=== PATIENT | female | born 1955 | race Caucasian/White ===

== ENCOUNTER 2019-11-01 10:01 | Inpatient (IN) | payer OTHER, SELFPAY ==
[~2019-11-01] VITALS: Ht 172.7 cm; Wt 100.7 kg
[2019-11-01 10:11] VITALS: Ht 172.7 cm; Wt 100.7 kg
[2019-11-01 11:41] LABS: UA SPECIFIC GRAVITY 1.015 (1.005-1.035); microscopic required? YES; urine erythrocyte NEGATIVE (NEGATIVE)
[2019-11-01 11:44] LABS: RED CELL DISTRIBUTION WIDTH 13.3 % (11.5-14.5)
[2019-11-01 11:58] LABS: PLATELET COUNT 16 x10^3mcL (130-400)
[2019-11-01 12:03] LABS: CARBON DIOXIDE 30.1 mmol/L (21-32); CHLORIDE SERUM 103 mmol/L (98-107); CREATININE SERUM 0.9 mg/dL (0.6-1.0); GFR1 > 60 mL/min; GLUCOSE SERUM 126 mg/dL (74-106); POTASSIUM SERUM 4.2 mmol/L (3.5-5.1); SODIUM SERUM 140 mmol/L (136-145)
[2019-11-01 12:07] LABS: ALBUMIN 3.5 g/dL (3.4-5.0); ALKALINE PHOSPHATASE 96 U/L (46-116); ALT/SGPT 35 U/L (14-59); AST/SGOT 20 U/L (15-37); LIPASE 288 IU/L (73-393); TOTAL PROTEIN, SERUM 7.6 g/dL (6.4-8.2)
[2019-11-01] MEDS ORDERED: PROAIR HFA8.5 GM INH (13:26)
[2019-11-01] MEDS ORDERED: COMINH INH (13:27)
[2019-11-01] MEDS ORDERED: PROS INH (13:27)
[2019-11-01] MEDS ORDERED: PROR4 PO (13:28)
[2019-11-01] MEDS ORDERED: PRO2 PO (13:28)
[2019-11-01 15:36] LABS: T3 TOTAL 1.19 ng/mL
[2019-11-01 16:26] LABS: MAGNESIUM 2.4 mg/dL (1.8-2.4); PHOSPHOROUS 4.1 mg/dL (2.5-4.9)
[2019-11-01 16:42] LABS: FREE T4 1.02 ng/dL (0.76-1.46); FREE THYROXINE INDEX 2.7 ug/dL (1.4-4.5); T4(THYROXINE) 8.3 ug/dL (4.7-13.3)
[2019-11-01 18:19] VITALS: BP 119/68
[2019-11-01 23:03] LABS: IRON 57 ug/dL (50-170); TOTAL IRON BINDING CAPACITY 267 ug/dL (250-450)
[2019-11-02 05:50] VITALS: BP 129/71
[2019-11-02 06:33] LABS: BASOPHIL % 0.8 % (0-2); RED CELL DISTRIBUTION WIDTH 13.7 % (11.5-14.5)
[2019-11-02 07:12] LABS: CALCIUM 8.9 mg/dL (8.5-10.1); CARBON DIOXIDE 30.9 mmol/L (21-32); CHLORIDE SERUM 106 mmol/L (98-107); CREATININE SERUM 0.9 mg/dL (0.6-1.0); GFR1 > 60 mL/min; GLUCOSE SERUM 131 mg/dL (74-106); MAGNESIUM 2.4 mg/dL (1.8-2.4); PHOSPHOROUS 4.3 mg/dL (2.5-4.9); POTASSIUM SERUM 4.6 mmol/L (3.5-5.1); SODIUM SERUM 142 mmol/L (136-145)
[2019-11-02 07:37] LABS: PLATELET COUNT 16 x10^3mcL (130-400)
[2019-11-02 08:02] VITALS: BP 125/70
[2019-11-02 18:04] VITALS: BP 138/79
[2019-11-02 19:30] VITALS: BP 114/67
[2019-11-03 05:02] VITALS: BP 125/80
[2019-11-03 06:23] LABS: BASOPHIL % 0.2 % (0-2); RED CELL DISTRIBUTION WIDTH 13.5 % (11.5-14.5)
[2019-11-03 06:41] LABS: CALCIUM 8.9 mg/dL (8.5-10.1); CARBON DIOXIDE 25.8 mmol/L (21-32); MAGNESIUM 2.2 mg/dL (1.8-2.4); PHOSPHOROUS 3.4 mg/dL (2.5-4.9); POTASSIUM SERUM 4.8 mmol/L (3.5-5.1)
[2019-11-03 07:16] LABS: PLATELET COUNT 17 x10^3mcL (130-400)
[2019-11-03 07:19] VITALS: BP 107/62
[2019-11-03 11:39] VITALS: BP 125/73
[2019-11-03 17:52] VITALS: BP 125/61
[2019-11-03 21:00] VITALS: BP 112/54
[2019-11-04 04:55] VITALS: BP 105/58
[2019-11-04 06:21] LABS: CALCIUM 8.2 mg/dL (8.5-10.1); CARBON DIOXIDE 26.5 mmol/L (21-32); PHOSPHOROUS 3.2 mg/dL (2.5-4.9); POTASSIUM SERUM 3.7 mmol/L (3.5-5.1)
[2019-11-04 08:14] VITALS: BP 123/91
[2019-11-04 10:04] LABS: PLATELET COUNT 22 x10^3mcL (130-400); RED CELL DISTRIBUTION WIDTH 13.5 % (11.5-14.5)
[2019-11-04 17:59] VITALS: BP 150/81
[2019-11-04 20:40] VITALS: BP 133/98
[2019-11-05 05:33] VITALS: BP 125/55
[2019-11-05 05:42] LABS: BASOPHIL % 0.3 % (0-2); RED CELL DISTRIBUTION WIDTH 13.4 % (11.5-14.5)
[2019-11-05 06:01] LABS: CALCIUM 8.6 mg/dL (8.5-10.1); CARBON DIOXIDE 26.9 mmol/L (21-32); CHLORIDE SERUM 104 mmol/L (98-107); CREATININE SERUM 0.9 mg/dL (0.6-1.0); GFR1 > 60 mL/min; GLUCOSE SERUM 340 mg/dL (74-106); MAGNESIUM 2.1 mg/dL (1.8-2.4); PHOSPHOROUS 3.5 mg/dL (2.5-4.9); POTASSIUM SERUM 4.5 mmol/L (3.5-5.1); SODIUM SERUM 137 mmol/L (136-145)
[2019-11-05 06:28] LABS: PLATELET COUNT 30 x10^3mcL (130-400)
[2019-11-05 08:04] VITALS: BP 142/64
[2019-11-05 12:52] VITALS: BP 105/50
[2019-11-05 17:48] VITALS: BP 153/81
[2019-11-05 21:40] VITALS: BP 142/75
[2019-11-06 05:45] VITALS: BP 128/69
[2019-11-06 06:43] LABS: BASOPHIL % 0.2 % (0-2); RED CELL DISTRIBUTION WIDTH 13.2 % (11.5-14.5)
[2019-11-06 06:50] LABS: PLATELET COUNT 59 x10^3mcL (130-400)
[2019-11-06 07:09] LABS: CALCIUM 8.6 mg/dL (8.5-10.1); CARBON DIOXIDE 27.1 mmol/L (21-32); POTASSIUM SERUM 4.2 mmol/L (3.5-5.1)
[2019-11-06 07:30] VITALS: BP 143/87
[2019-11-06] MEDS ORDERED: SERTRALINE50 M1 PO (11:02)
[2019-11-06] MEDS ORDERED: RIS1 PO (11:02)
[2019-11-06] MEDS ORDERED: ATA25 PO (11:02)
[2019-11-06] MEDS ORDERED: OMEPRAZOLE20 M4 PO (11:02)
[2019-11-06 11:34] VITALS: BP 143/87
== END 2019-11-06 14:10 | disposition home or self-care (01) | DRG 813 ==
LOC: ED 10:01 → DU 13:52 → MU 13:52 → DU 15:55 → MU 11-03 10:46
PROVIDERS: Emergency Medicine; Student in an Organized Health Care Education/Training Program; ADMIT Family Medicine
DX: D69.3 Immune thrombocytopenic purpura (principal); N17.0 Acute kidney failure with tubular necrosis; N39.0 Urinary tract infection, site not specified; F20.89 Other schizophrenia; C94.6 Myelodysplastic disease, not elsewhere classified; K92.0 Hematemesis; I72.2 Aneurysm of renal artery; J45.909 Unspecified asthma, uncomplicated; F32.9 Major depressive disorder, single episode, unspecified; F15.10 Other stimulant abuse, uncomplicated; Z03.818 Encounter for observation for suspected exposure to other biological agents ruled out; Z79.899 Other long term (current) drug therapy
CPT/HCPCS: 83880; 84439; C9113; G0378; J0456; J0696; J2270; J2405; J3490; J3535; J7030; J7040; J7060; J8540